=== PATIENT | male | born 1985 | race Caucasian/White ===

== ENCOUNTER 2016-06-07 06:38 | Day surgery (SDC) | payer MEDICAID ==
[2016-06-07] MEDS ORDERED: PROPOFOL/EMULSION 500 MG/50 ML BOTTLE IV ONE ×2 (07:45→09:03)
[2016-06-07] MEDS ORDERED: LIDOCAINE 2% 5 ML SDV ONE (07:45)
[2016-06-07] MEDS ORDERED: LIDOCAINE 1% 5 ML SDV ONE (07:53)
[2016-06-07] MEDS ORDERED: LR 1,000 ML IV ONE (08:05)
[2016-06-07] MEDS ORDERED: LIDOCAINE 1% 5 ML SDV ID PRN (08:05)
[2016-06-07] MEDS ORDERED: fentaNYL 100 MCG/2 ML INJ ONE (08:29)
--- NOTE | 2016-06-07 10:43 | GPN ---
[f rep st] PROCEDURE NOTE PREPROCEDURE DIAGNOSIS: Diarrhea. POSTPROCEDURE DIAGNOSIS: 1. Mild gastritis. 2. Chronic diarrhea. PROCEDURES: 1. EGD with biopsies. 2. Colonoscopy with biopsies. MEDICATIONS: Monitored anesthesia care. INDICATION: The patient is a 30-year-old gentleman with chronic intermittent diarrhea, elevated CRP and inflammatory markers, with a sister with ulcerative colitis. He is here today for further evaluation for the etiology of diarrhea. The risks and benefits of the procedure were discussed with the patient and consent obtained. Risks include, but not limited to, bleeding, perforation, risks associated with sedation. The patient is ASA class 2. DESCRIPTION OF PROCEDURE: The end-viewing endoscope was inserted into the esophagus, into the stomach, into the 2nd portion of the duodenum. The esophagus appears normal. The GE junction is located at 42 cm from incisors. The Z-line is regular. There is no evidence of esophagitis, varices or Melendez' s. The stomach shows mild antral gastritis consistent with erythema. Biopsies were taken with cold biopsy forceps to evaluate for Helicobacter pylori. The duodenum appears normal. Biopsies were taken using cold biopsy forceps to evaluate for celiac disease. There was no evidence of hiatal hernia. The patient was then repositioned and the adult colonoscope was advanced into the terminal ileum. The terminal ileum appeared normal. The ileocecal valve, cecum , appendiceal orifice, ascending colon, hepatic flexure, transverse colon, splenic flexure, descending colon, sigmoid colon, and rectum appeared normal. Retroflexed views in the rectum were normal. Random biopsies were taken throughout the colon using cold biopsy forceps to evaluate for microscopic colitis. IMPRESSION: 1. Mild antral gastritis, status post biopsies. 2. Normal colonoscopy, status post random biopsies. RECOMMENDATIONS: 1. Discharge to home with escort. 2. Advance diet as tolerated. 3. Follow up final pathology results. Results available within 10 days. 4. Repeat colonoscopy for screening at age 50. No recall. 5. Further recommendations following biopsy results. 6. Follow up with the patient's primary care physician as previously scheduled. Thank you for allowing me to participate in the care of your patient. Please do not hesitate to call with questions. /[id number]
== END 2016-06-07 10:15 | disposition home or self-care (01) ==
LOC: FSGY 06:38
PROVIDERS: ATTEND Internal Medicine Gastroenterology
PROC: 0DBE8ZX Excision of Large Intestine, Via Natural or Artificial Opening Endoscopic, Diagnostic (ICD-10-PCS; principal; 2016-06-07 08:15)
PROC: 0DB98ZX Excision of Duodenum, Via Natural or Artificial Opening Endoscopic, Diagnostic (ICD-10-PCS; principal; 2016-06-07 08:15)
PROC: 0DB68ZX Excision of Stomach, Via Natural or Artificial Opening Endoscopic, Diagnostic (ICD-10-PCS; principal; 2016-06-07 08:15)
DX: K59.09 Other constipation (principal); K29.70 Gastritis, unspecified, without bleeding
CPT/HCPCS: J2704; J3010